=== PATIENT | female | born 1985 | race Caucasian/White ===

== ENCOUNTER 2023-06-23 14:27 | Observation (INO) | payer MEDICAID, SELFPAY ==
[2023-06-23 14:29] VITALS: BP 136/100; PULSE 84; RESP 18; TEMP 36.6; O2SAT 99; BMI 26.6
--- NOTE | 2023-06-23 14:42 | EX.ED.SAOD ---
HPI <JOSÉ Lala - Last Filed: 06/23/23 16:29> History of Present Illness Chief Complaint: Substance Abuse Narrative Narrative: 37-year-old female is here to detox from heroin. She states she started using Percocet 4 months ago and was taking up to 60 mg a day. 1 month ago she stopped Percocet and started snorting heroin about 5 lines daily. When she tried to quit at home she becomes extremely anxious and restless and relapses. This morning she walked into [facility] in [place] and was treated with clonidine and hydroxyzine and advised to come here for further evaluation. She states before that she never had drug issues and has never been admitted for detox. She vapes nicotine but denies alcohol or marijuana use. PFSH <JOSÉ Lala - Last Filed: 06/23/23 16:29> [facility] Home Medications NK 06/23/23 [History Last Taken Unknown] Allergy/AdvReac Type Severity Reaction Status Date / Time aspirin Allergy Nausea Verified 06/23/23 14:32 Surgical History (Updated 06/23/23 @ 15:28 by Latisha Taylor) H/O: hysterectomy Social History Smoking Status: Current every day smoker tobacco type: cigarettes ROS <JOSÉ Lala - Last Filed: 06/23/23 16:29> ROS ED ROS Narrative Constitutional: Negative for fever, chills, malaise. CVS: Negative for chest pain, syncope. Respiratory: Negative for shortness of breath. GI: Negative for abdominal pain, nausea, vomiting. EXAM <JOSÉ Lala - Last Filed: 06/23/23 16:29> Physical Exam Narrative Exam Narrative: CONST: Patient sitting in no acute distress. EYES: Normal inspection. NECK: Normal inspection. RESP: No respiratory distress, CTAB. CVS: Regular rate and rhythm, no murmur, no gallop. SKIN: Color normal, no rash, warm, dry, intact. EXTREMITIES: Normal appearance, no pedal edema. NEURO: Oriented x4. PSYCH: Anxious. Const Vital Signs: 06/23/23 14:29 Temperature 97.9 F Temperature Source Temporal Pulse Rate 84 Respiratory Rate 18 Blood Pressure 136/100 H Blood Pressure Mean 112 Pulse Ox 99 Oxygen Delivery Method Room Air <Dr. Samm Reinoso MD - Last Filed: 06/23/23 16:50> Physical Exam Const Vital Signs: 06/23/23 14:29 Temperature 97.9 F Temperature Source Temporal Pulse Rate 84 Respiratory Rate 18 Blood Pressure 136/100 H Blood Pressure Mean 112 Pulse Ox 99 Oxygen Delivery Method Room Air MDM <JOSÉ Lala - Last Filed: 06/23/23 16:29> [facility] Narrative Medical decision making narrative: Patient presents to detox from heroin. Last dose 8:30 AM. She is very anxious and restless. She appears well and nontoxic with stable vital signs. Labs show nonspecific leukocytosis at 12.9. BMP unremarkable. Urine tox is negative. Not sure what substance she is actually snorting that it doesn't show up on a screen. Case was discussed with the hospitalist for admission. Lab Data Attestation: I reviewed the patient's lab results. Labs: Laboratory Results - last 24 hr 06/23/23 06/23/23 15:21 15:35 WBC 12.9 H RBC 4.70 Hgb 13.6 Hct 41.2 MCV 87.7 MCH 28.9 MCHC 33.0 RDW Std Deviation 38.4 RDW Coeff of Bonifacio 11.9 Plt Count 320 MPV 9.6 Immature Gran % (Auto) 0.500 Neut % (Auto) 86.2 H Lymph % (Auto) 10.7 L Caswell % (Auto) 2.3 Eos % (Auto) 0.0 Baso % (Auto) 0.3 Absolute Neuts (auto) 11.1 H Absolute Lymphs (auto) 1.37 Nucleated RBC % 0 Sodium 138 Potassium 3.7 Chloride 105 Carbon Dioxide 26.0 Anion Gap 7 BUN 9 Creatinine 0.78 Estim Creat Clear Calc 93.27 Est GFR (MDRD) Af Amer 108 Est GFR (MDRD) Non-Af 89 BUN/Creatinine Ratio 11.6 Glucose 118 H Calcium 9.4 Total Bilirubin 0.50 AST 11 L ALT 15 Alkaline Phosphatase 64 Total Protein 7.6 Albumin 3.7 Globulin 3.9 Albumin/Globulin Ratio 0.9 Serum , Qual NEGATIVE Urine Opiates Screen NEGATIVE Urine Methadone Screen NEGATIVE Ur Barbiturates Screen NEGATIVE Ur Phencyclidine Scrn NEGATIVE Ur Amphetamines Screen NEGATIVE MDMA (Ecstasy) Screen NEGATIVE U Benzodiazepines Scrn NEGATIVE Urine Cocaine Screen NEGATIVE U Cannabinoids Screen NEGATIVE Ur Drug Screen Comment Ethyl Alcohol < 3.0 <Dr. Samm Reinoso MD - Last Filed: 06/23/23 16:50> [facility] Narrative Medical decision making narrative: Patient presents to detox from heroin. Last dose 8:30 AM. She is very anxious and restless. She appears well and nontoxic with stable vital signs. Labs show nonspecific leukocytosis at 12.9. BMP unremarkable. Urine tox is negative. Not sure what substance she is actually snorting that it doesn't show up on a screen. Case was discussed with the hospitalist for admission. I have personally performed a face to face assessment of the patient and have reviewed the MARTI Note. I performed a substantive portion of the visit including all aspects of the following. My kimball findings include: History is remarkable for opiate use in January. She states she started using opiates for kicks . Patient snorted what she believes to be heroin this morning. The powder was hwang in color. She states in the past the powder was white. She denies injecting. She denies fever, chills night sweats. Denies headache, visual, ocular auditory symptoms. Patient denies chest pain, shortness of breath or dyspnea on exertion. She denies abdominal pain, nausea, vomit or diarrhea. She denies urologic symptoms. Patient does feel anxious. Exam is is remarkable for her being anxious and restless. Vital signs remarkable slightly elevated blood pressure. HEENT exam is normal. Lungs are clear to auscultation. Breath sounds are symmetric. Heart is regular. Rate is normal. There is no murmur, gallop or rub. Abdomen soft nontender. There is no hepatosplenomegaly. There is no dermatologic lesions noted. Medical Decision Making patient with opiate use and addiction. Will obtain appropriate screening labs and contact hospitalist for admission. Spoke with Dr. Chico Montenegro who accepted patient for detox from opiates. Other additions or changes: None Lab Data Lab results narrative: White count is slightly elevated 12.9. Patient's had elevated white counts in the past. Electrolyte panel is normal. Liver panel is normal. Serum test is negative. Serum tox screen is negative. This may be due to the fact that patient is snorting fentanyl which would not show up on talk screen. Alcohol is nondetected. Labs: Laboratory Results - last 24 hr 06/23/23 06/23/23 15:21 15:35 WBC 12.9 H RBC 4.70 Hgb 13.6 Hct 41.2 MCV 87.7 MCH 28.9 MCHC 33.0 RDW Std Deviation 38.4 RDW Coeff of Bonifacio 11.9 Plt Count 320 MPV 9.6 Immature Gran % (Auto) 0.500 Neut % (Auto) 86.2 H Lymph % (Auto) 10.7 L Caswell % (Auto) 2.3 Eos % (Auto) 0.0 Baso % (Auto) 0.3 Absolute Neuts (auto) 11.1 H Absolute Lymphs (auto) 1.37 Nucleated RBC % 0 Sodium 138 Potassium 3.7 Chloride 105 Carbon Dioxide 26.0 Anion Gap 7 BUN 9 Creatinine 0.78 Estim Creat Clear Calc 93.27 Est GFR (MDRD) Af Amer 108 Est GFR (MDRD) Non-Af 89 BUN/Creatinine Ratio 11.6 Glucose 118 H Calcium 9.4 Total Bilirubin 0.50 AST 11 L ALT 15 Alkaline Phosphatase 64 Total Protein 7.6 Albumin 3.7 Globulin 3.9 Albumin/Globulin Ratio 0.9 Serum , Qual NEGATIVE Urine Opiates Screen NEGATIVE Urine Methadone Screen NEGATIVE Ur Barbiturates Screen NEGATIVE Ur Phencyclidine Scrn NEGATIVE Ur Amphetamines Screen NEGATIVE MDMA (Ecstasy) Screen NEGATIVE U Benzodiazepines Scrn NEGATIVE Urine Cocaine Screen NEGATIVE U Cannabinoids Screen NEGATIVE Ur Drug Screen Comment Ethyl Alcohol < 3.0 Discharge Plan Triage Chief Complaint: Substance Abuse ED Midlevel Provider: Juanita Mejia ED Provider: Samm Reinoso Dx/Rx/DC Orders Clinical Impression: Anxiety, Opioid abuse Prescriptions: No Action NK [facility] Referrals: Care Physician,No Primary [Non-Staff] - Disposition Disposition: Acute Care Hospital [facility]
[2023-06-23] MEDS: LORazepam 0.5 MG Tablet PO ×2 (15:10→17:13)
[2023-06-23 15:52] LABS: Amphetamine Urine VISTA NEGATIVE (<1000 ng/mL); Barbiturate Urine VISTA NEGATIVE (< 200 ng/mL); Benzodiazepine Urine VISTA NEGATIVE (< 200 ng/mL); Cocaine Urine VISTA NEGATIVE (< 300 ng/mL); Ecstacy Urine VISTA NEGATIVE (< 500 ng/mL); Methadone Urine VISTA NEGATIVE (< 300 ng/mL); PCP Urine VISTA NEGATIVE (< 25 ng/mL); THC Urine VISTA NEGATIVE (< 50 ng/mL); Vista UDS pH Range 6
[2023-06-23 15:52] LABS: Absolute Lymphocyte Count 1.37 X10^3/uL (0.83-4.51); Absolute Neutrophil Count 11.1 X10^3/uL (2.0-7.7); Basophil# 0.04 X10^3/uL; Basophil% 0.3 % (0-1); Hematocrit 41.2 % (37-47); Hemoglobin 13.6 g/dL (12.0-15.0); Lymphocyte # 1.37 X10^3/ul (0.83-4.51); Lymphocyte % 10.7 % (19-41); Mean Corpuscular Hgb 28.9 pg (27.0-32.0); Mean Corpuscular Volume 87.7 fL (81-99); Mean Platelet Vol. 9.6 fl (6.2-12.0); Monocyte% 2.3 % (0-10); NRBC Flagged by Analyzer 0 % (0-5); Neutrophil # 11.07 X10^3/uL (2.7-7.7); Neutrophil % 86.2 % (47-70); Platelet Count 320 K/mm3 (150-450); RBC Distribution Width CV 11.9 % (11.6-14.6); RBC Distribution Width SD 38.4 fl (35.1-43.9); White Blood Count 12.9 K/mm3 (4.4-11.0)
--- OUTSIDE RECORDS SUMMARY | 2023-06-23 15:52 | XMS RPT_ITS | CCD ---
Author Name Unknown Address [address] [place] [address] Organization [facility] Care Team Providers Care Janitorial Maintenance Worker Name Role Phone Douglas Sheffield Unavailable Unavailable Douglas Sheffield Unavailable [facility]available [facility], Phys[facility] Primary Care Unavailable Gilmer Salazar Admitting Unavailable Gilmer Salazar Attending Unavailable [facility], Physician Primary Care Unavailable Ted Thibodeaux Admitting Unavailable Ted Thibodeaux Attending Unavailable Required, No Pcp Unavailable Unavailable Ale Fink Unavailable Unavailable MATTEO, Ms. ALE GILLILAND Attending Un available ILAN ALLEN Attending Unavailable EVELYN GANDHI Primary Care Unavailable MARQUES REED Attending Unava ilable EVELYN GANDHI Primary Care Unavailable ELAINE GANDHIA Dilip Primary Care Unavailable RIGO MORA Attending Unavailab le ELAINE GANDHIA Dilip Primary Care Unavailable MARQUES REED Attending Unava ilable ELAINE GANDHIA Dilip Primary Care Unavailable RIGO MORA Attending Unavailab le Allergies Allergy Classification Reported Allergen(s) Allergy Type Date of Onset Reaction(s) Facility (1 source) Asprin 325mg only; Translations: [Asprin 325mg only] Propensity to adverse reactions to drug (disorder) [facility] Repository (1 source) Low Dose ASA; Translations: [Low Dose ASA] Propensity to adverse reactions to drug (disorder) [facility] Repository (3 sources) Aspirin; Translations: [ASPIRIN] Drug Allergy 2 Other [facility] Medications Current Medications Medication Drug Class(es) Dates Sig (Normalized) Sig (Original) cephalexin 500 mg oral tablet (1 source) Cephalosporin Antibacterial Start: 05-21-2022 End: 05-27-2022 take 1 tablet by mouth four times daily cephalexin 500 mg oral tablet ; 1 tab(s) orally 4 times a day Quantity: 28 Refills: 0 Ordered: 21-May-2022 Ale Fink Start: 21-May-2022 End: 27-May-2022 Generic Substitution Allowed Comments: Finish all this medication unless otherwise directed by prescriber. Problems Active Problems Problem Classification Problem Date Documented Da te Episodic/Chronic Anxiety disorders (2 sources) Generalized anxiety disorder; Translations: [Generalized anxiety disorder] Onset: 03-23-2023 Chronic Cardiac dysrhythmias (2 sources) Palpitations; Translations: [Palpitations] Onset: 05-22-2022 Episodic Genitourinary symptoms and ill-defined conditions (1 source) Dysuria; Translations: [Dysuria] Onset: 05-21-2022 Episodic Headache; including migraine (2 sources) Headache; including migraine; Translations: [Headache, unspecified] Onset: 05-21-2022 Nausea and vomiting (2 sources) Nausea; Translations: [Nausea] Onset: 02-20-2023 Episodic Other connective tissue disease (2 sources) Other enthesopathies, not elsewhere classified; Translations: [Other enthesopathies, not elsewhere classified] Onset: 01-12-2023 Episodic Other lower respiratory disease (2 sources) Shortness of breath; Translations: [Shortness of breath] Onset: 05-22-2022 Episodic Other nervous system disorders (1 source) Tremor; Translations: [Abnormal involuntary movements] 05-21-2022 Episodic Other nervous system disorders (4 sources) Tremor, unspecified; Translations: [Tremor, unspecified] Onset: 05-21-2022 Episodic Other non-traumatic joint disorders (2 sources) Pain in right shoulder; Translations: [Pain in right shoulder] Onset: 01-12-2023 Episodic Poisoning by nonmedicinal substances (2 sources) Toxic effect of other tobacco and nicotine, accidental (unintentional), initial encounter; Translations: [Toxic effect of other tobacco and nicotine, accidental (unintentional), initial encounter] Onset: 03-23-2023 Episodic Substance-related disorders (1 source) Nicotine dependence, other tobacco product, uncomplicated; Translations: [Nicotine dependence, other tobacco product, uncomplicated] Onset: 05-21-2022 Chronic Unclassified (2 sources) URINARY ISSUES 05-21-2022 Past or Other Problems Problem Classification Problem Date Documented Da te Episodic/Chronic Other connective tissue disease (2 sources) Pain in right leg; Translations: [Pain in right leg] Onset: 05-09-2022 Episodic Sprains and strains (2 sources) Strain of unspecified muscle and tendon at ankle and foot level, right foot, initial encounter; Translations: [Strain of unspecified muscle and tendon at ankle and foot level, right foot, initial encounter] Onset: 05-09-2022 Episodic Results Test Name Value Interpretation Reference Range Facil ity Vital Signs Date Time Vital Sign Value Performing Clinician Faci lity 05-21-2022 18:20-0500 Diastolic blood pressure 80 mm[Hg] No Pcp Required [facility] 05-21-2022 18:20-0500 Heart rate 58 /min No Pcp Required [facility] 05-21-2022 18:20-0500 Respiratory rate 16 /min No Pcp Required [facility] 05-21-2022 18:20-0500 SaO2% (BldA) [Mass fraction] 98 % No Pcp Required [facility] 05-21-2022 18:20-0500 Systolic blood pressure 123 mm[Hg] No Pcp Required [facility] 05-21-2022 15:12-0500 Body height 160 cm No Pcp Required [facility] 05-21-2022 15:12-0500 Body temperature 97.7 [degF] No Pcp Required [facility] 05-21-2022 15:12-0500 Body weight 82 kg No Pcp Required [facility] Encounters Encounter Date Encounter Type Care Provider Facility Start: 03-23-2023 End: 03-23-2023 Emergency department patient visit EVELYN GANDHI [facility] Start: 02-20-2023 End: 02-20-2023 Emergency department patient visit EVELYN GANDHI [facility] Start: 01-12-2023 End: 01-12-2023 Emergency department patient visit EVELYN GANDHI [facility] Start: 05-22-2022 End: 05-22-2022 Emergency department patient visit [facility] Start: 05-21-2022 End: 05-21-2022 Emergency department patient visit Ale Fink [facility] Emergency 07 Start: 05-09-2022 End: 05-09-2022 Emergency department patient visit MARQUES VENUS [facility] Start: 08-09-2018 End: 08-09-2018 Emergency department patient visit Physician [place] Facility:[facility] Start: 08-09-2018 Patient encounter procedure Facility:[id number] Start: 09-13-2017 End: 09-13-2017 Emergency department patient visit Physician [place] Facility:[facility] Start: 12-02-2016 End: 12-02-2016 Emergency department patient visit Douglas Neftali Sheffield Facility:[facility] Payers Date Payer Category Payer Medicaid [id number] 2017 Unknown [id number] 2017 Unknown 1987 Unknown [id number] [id number] 1987 Unknown [id number] 2.16.84 [id number] 1987 Unknown [id number] 2.16. [id number] 1987 Unknown [id number] 2.16.8 [id number] 1987 Unknown [id number] 2.16. [id number] 1987 Unknown [id number] 2.16. [id number] 1987 Unknown [id number] 2.16. [id number] 1987 Unknown [id number] 2.16. [id number] 1987 Unknown [id number] 2.16. [id number] Unknown [id number] Social History Date Type Detail Facility [facility] Tobacco smoking consumption unknown [facility] Clinical Note 05-24-2022 Note Date & Type Note Facility 05-24-2022 Note Clinical Note - Phar hue v2: Education: Additional NotesED Post Discharge Result Follow Up: Attempt #, Complete/Pending# Completed #Type#: urine Bug# E. Coli Spoke With: Patient Patient contacted in regards a positive urine culture. Patient was instructed to continue taking full course of antibiotics and to f/u with PCP if symptoms worsen. Patient educated on the worsening signs and symptoms of UTI including an increase in flank pain or suprapubic pain, chills, fever, urgency, burning, frequency, foul smelling urine, blood in urine, and any abnormal discharge. Made aware to seek medical attention if experiencing any new or worsening symptoms and to follow up with PCP. Pt verbalizes understanding and has no other questions or concerns. Patient verbalized understanding and had no further questions or concerns. If there are any other questions for the ED Post-Discharge Culture Follow Up Team, please contact [phone]. . Leesa Kenny PharmD PGY1 Resident [facility] Electronic Signatures: Leesa Kenny (PHARM STUD) (Signed 24-May-2022 16:11) Authored: Education Deonna Barber (PharmD) (Signed 27-May-2022 02:31) Co-Signer: Education Last Updated: 27-May-2022 02:31 by Deonna Barber (PharmD) [facility] Summary Purpose Family History No Family History Records FoundNo Family History Records FoundNo Family History Records FoundNo Family History Records FoundNo Family History Records FoundNo Family History Records Found Advance Directives No Advanced Directives Records FoundNo Advanced Directives Records FoundNo Advanced Directives Records FoundNo Advanced Directives Records FoundNo Advanced Directives Records FoundNo Advanced Directives Records Found Reason for Referral * UTI, shaking episodeUTI, shaking episode Additional Source Comments INFORMATION SOURCE (unrecogn ized section and content) DATE CREATED AUTHOR AUTHOR'S ORGANIZ ATION 08/10/2018 [facility] DATE CREATED AUTHOR AUTHOR'S ORGANIZ ATION 09/07/2018 [facility] DATE CREATED AUTHOR AUTHOR'S ORGANIZ ATION 05/27/2022 [facility] DATE CREATED AUTHOR AUTHOR'S ORGANIZ ATION 05/27/2022 [facility] DATE CREATED AUTHOR AUTHOR'S ORGANIZ ATION 03/24/2023 [facility] <item> Privacy Markings (unrecogniz ed section and content) Section Author: Laverne Fernandez PROHIBITION ON REDISCLOSURE OF CONFIDENTIAL INFORMATION This notice accompanies a disclosure of information concerning a client made to you with the consent of such client. FOR RECORDS PERTAINING TO PATIENTS WHO ARE OR HAVE BEEN ENROLLED IN A CHEMICAL DEPENDENCY/SUBSTANCEABUSE PROGRAM, SOME INFORMATION MAY BE OMITTED. This clinical summary was aggregated from multiple sources. Caution should be exercised in using it in the provision of clinical care. This summary normalizes information from multiple sources, and as a consequence, information in this document may materially change the coding, format and clinical context of patient data. In addition, data may be omitted in some cases. CLINICAL DECISIONS SHOULD BE BASED ON THE PRIMARY CLINICAL RECORDS. [employer] [facility]. provides no warranty or guarantee of the accuracy or completeness of information in this document.
[2023-06-23 16:03] LABS: ALB/GLOB Ratio 0.9 RATIO (0.9-2.4); AST(SGOT) 11 U/L (15-37); Alanine Aminotransfer ALT/SGPT 15 U/L (13-56); Albumin, Serum 3.7 g/dL (3.2-5.0); Alkaline Phosphatase 64 U/L (45-117); Anion Gap 7 (5-15); BUN 9 mg/dL (7-18); BUN/Creat Ratio 11.6 RATIO (10-20); Calcium,Total 9.4 mg/dL (8.5-10.1); Chloride 105 mmol/L (98-107); Creatinine, Serum 0.78 mg/dL (0.55-1.02); EST Glomerular Filtration Rate 89 mL/min (>60); Est Glom Filt Rate - Afr Amer 108 mL/min (>60); Estimated Creatinine Clearance 93.27 ml/min; Globulin 3.9 g/dL (2.2-4.2); Glucose 118 mg/dL (74-106); Potassium 3.7 mmol/L (3.5-5.1); Protein, Total 7.6 g/dL (6.4-8.2); Sodium Level 138 mmol/L (136-145)
--- NOTE | 2023-06-23 16:22 | HP.PCM.HOS_ITS ---
HPI - General General Date of Admission: 06/23/23 Date of Service: 06/23/23 Chief Complaint: Opiate abuse HPI Narrative RUSLAN MTZ, is a 37 F who presented to [facility] ED on 06/23/2023 for opiate detoxification. Patient seen at bedside in the ED. Patient was sitting up in bed, conversing normally. Patient appeared very anxious and was tearful at times during our conversation. She reported feeling very anxious despite receiving a dose of p.o. Ativan while in the ED and was asking for more medications to help with anxiety during my encounter. Patient has never been in the hospital for opiate detoxification. Patient began abusing opiates about 4 months ago. She started snorting Percocet at that time. No pr evious history of substance use disorder. States that she started doing this on the way home with her friends because it was fun. She got the Percocet from friends. She states that they ran out of Percocet about 1 to 2 months ago, and she began snorting heroin at that time. She has been using heroin daily since then, usually 4-5 times per day. Patient states she came to the hospital today because she wants to be done with using opiates and know that she has withdrawal symptoms when she does not use. Patient has children at home, states that she has gotten childcare for them so that she can be in the hospital for as long as needed. She currently reports feeling very anxious with mild nausea and frequent yawning. She otherwise denies any acute pain or discomfort. No other acute concerns this time. FORMERLY [facility], [facility] Home Medications NK 06/23/23 [History Last Taken Unknown] Allergy/AdvReac Type Severity Reaction Status Date / Time aspirin Allergy Nausea Verified 06/23/23 14:32 Surgical History (Updated 06/23/23 @ 15:28 by Latisha Taylor) H/O: hysterectomy Social History Smoking Status: Current every day smoker tobacco type: cigarettes ROS Constitutional Constitutional: Denies chills, fatigue, fever(s) or weakness Eyes Eyes: Denies change in vision Cardiovascular Cardiovascular: Denies chest pain Respiratory/Chest Respiratory/Chest: Denies cough Gastrointestinal Gastrointestinal: Reports nausea; Denies abdominal pain, constipation, diarrhea or vomiting Genitourinary Genitourinary: Denies dysuria Musculoskeletal Musculoskeletal: Reports myalgias; Denies arthralgias or back pain Neurologic Neurologic: Denies focal weakness, headache(s) or numbness Psychiatric Psychiatric: Reports anxiety Vital Signs Vital Signs Vital Signs: 06/23/23 14:29 Temperature 97.9 F Temperature Source Temporal Pulse Rate 84 Respiratory Rate 18 Blood Pressure 136/100 H Blood Pressure Mean 112 Pulse Ox 99 Oxygen Delivery Method Room Air Weight Weight: 68.13 kg Body Mass Index (BMI) 26.6 Physical Exam Const alert, oriented x3, no apparent distress and average body habitus Constitutional Narrative: Young female, sitting up in bed, anxious appearing but otherwise conversing normally and in no acute distress. General Appearance: cooperative and comfortable HEENT normocephalic, head/scalp atraumatic, hearing grossly normal bilaterally, nasal mucous membranes and turbinates normal and moist oral mucous membranes Eyes PERRL, EOMs intact bilaterally and conjunctivae normal Neck full ROM, no lymphadenopathy and supple Lymph Lymphatic: no lymphadenopathy noted Chest inspection of chest normal Resp normal respiratory effort, normal air movement, no use of accessory muscles and clear to auscultation bilaterally Cardio regular rate, regular rhythm, no murmurs and peripheral pulses 2+ throughout GI normal to inspection, nondistended, normoactive bowel sounds, soft to palpation, non-tender and non-distended Back/Spine normal ROM Extremity normal to inspection, full ROM and no pedal edema Skin no rashes or lesions noted Neuro moves all extremities and no focal motor deficits Speech: speech normal Psych mental status grossly normal Mood & Affect: anxious Results Lab / Micro Data 06/23/23 15:35 06/23/23 15:35 Labs: Laboratory Results - last 24 hr 06/23/23 15:21: Urine Opiates Screen NEGATIVE, Urine Methadone Screen NEGATIVE, Ur Barbiturates Screen NEGATIVE, Ur Phencyclidine Scrn NEGATIVE, Ur Amphetamines Screen NEGATIVE, MDMA (Ecstasy) Screen NEGATIVE, U Benzodiazepines Scrn NEGATIVE, Urine Cocaine Screen NEGATIVE, U Cannabinoids Screen NEGATIVE, Ur Drug Screen Comment 06/23/23 15:35: WBC 12.9 H, RBC 4.70, Hgb 13.6, Hct 41.2, MCV 87.7, MCH 28.9, MCHC 33.0, RDW Std Deviation 38.4, RDW Coeff of Bonifacio 11.9, Plt Count 320, MPV 9.6, Immature Gran % (Auto) 0.500, Neut % (Auto) 86.2 H, Lymph % (Auto) 10.7 L, [place] % (Auto) 2.3, Eos % (Auto) 0.0, Baso % (Auto) 0.3, Absolute Neuts (auto) 11.1 H, Absolute Lymphs (auto) 1.37, Nucleated RBC % 0, Sodium 138, Potassium 3.7, Chloride 105, Carbon Dioxide 26.0, Anion Gap 7, BUN 9, Creatinine 0.78, Estim Creat Clear Calc 93.27, Est GFR (MDRD) Af Amer 108, Est GFR (MDRD) Non-Af 89, BUN/Creatinine Ratio 11.6, Glucose 118 H, Calcium 9.4, Total Bilirubin 0.50, AST 11 L, ALT 15, Alkaline Phosphatase 64, Total Protein 7.6, Albumin 3.7, Globulin 3.9, Albumin/Globulin Ratio 0.9 Assessment & Plan Assessment/Plan (1) Opioid abuse: PLAN: Plan Patient is a 37-year-old female who presented to [facility] ED on 06/23/2023 for opiate detoxification. 1. Opiate abuse Began snorting Percocet about 4 months ago, switched to snorting heroin 1 to 2 months ago. No previous substance abuse prior to 4 months ago. Has never gone through opiate detoxification before. Urine drug screen negative, but notably heroin will not show up on urine drug screen. ? Admit under inpatient status to [facility]. Case management consulted. Opiate withdrawal order set used to place orders for Subutex taper and as needed medications for opiate withdrawal. 2. Mild leukocytosis ? WBC count 12.9 on admit. Suspect due to mild stress state versus hemoconcentration. No infectious symptoms noted. Follow-up a.m. CBC. No need for antibiotics at this time. DVT prophylaxis: Low risk, ambulate CODE STATUS: Full code, verified Expected disposition: Home, 2 to 3 days Total clinical time spent by myself addressing the patient's medical issues, reviewing all the data, and collaborating with patient's care team: 40 minutes. Charges/Coding Visit Charges Inpatient E&M: 16537 Init Hosp L1
[2023-06-23 16:38] LABS: Internal QC Validated? YES +Cl - CLEAR BKGD; Pregnancy, Serum, hCG Quali. NEGATIVE Negative
[2023-06-23 16:39] LABS: Alcohol, Blood (Medical)-Serum < 3.0 mg/dL
--- OUTSIDE RECORDS SUMMARY | 2023-06-23 16:51 | XMS RPT_ITS | CCD ---
Author Name Unknown Address [id number] [place] [address] Organization [facility] Care Team Providers Care Food Product Inspector Name Role Phone Douglas Sheffield Unavailable Unavailable [...] Propensity to adverse reactions to drug (disorder) [facility] Repository (1 source) Low Dose ASA; Translations: [Low Dose ASA] Propensity to adverse reactions to drug (disorder) [facility] Repository (3 sources) Aspirin; Translations: [ASPIRIN] Drug Allergy 2 Other [facility] Medications Current Medications Medication Drug Class(es) [...] blood pressure 80 mm[Hg] No Pcp Required [facility] 05-21-2022 18:20-0500 Heart rate 58 /min No Pcp Required [facility] 05-21-2022 18:20-0500 Respiratory rate 16 /min No Pcp Required [facility] 05-21-2022 18:20-0500 SaO2% (BldA) [Mass fraction] 98 % No Pcp Required [facility] 05-21-2022 18:20-0500 Systolic blood pressure 123 mm[Hg] No Pcp Required [facility] 05-21-2022 15:12-0500 Body height 160 cm No Pcp Required [facility] 05-21-2022 15:12-0500 Body temperature 97.7 [degF] No Pcp Required [facility] 05-21-2022 15:12-0500 Body weight 82 kg No Pcp Required [facility] Encounters Encounter Date Encounter Type Care Provider Facility Start: 03-23-2023 End: 03-23-2023 Emergency department patient visit EVELYN GANDHI [facility] Start: 02-20-2023 End: 02-20-2023 Emergency department patient visit EVELYN GANDHI [facility] Start: 01-12-2023 End: 01-12-2023 Emergency department patient visit EVELYN GANDHI [facility] Start: 05-22-2022 End: 05-22-2022 Emergency department patient visit [facility] Start: 05-21-2022 End: 05-21-2022 Emergency department patient visit lAe Fink [facility] Start: 05-09-2022 End: 05-09-2022 Emergency department patient visit MARQUES VENUS [facility] Start: 08-09-2018 End: 08-09-2018 Emergency department patient visit Physician [place] Facility:[facility] Start: 08-09-2018 Patient encounter procedure Facility:[id number] Start: 09-13-2017 End: 09-13-2017 Emergency department patient visit Physician [place] Facility:[facility] Start: 12-02-2016 End: 12-02-2016 Emergency department patient visit Douglas Neftali Sheffield Facility:[facility] Payers Date Payer Category Payer Medicaid [id number] 2017 Unknown [id number] 2017 Unknown 1987 Unknown [id number] [id number] 1987 Unknown [id number] 2.16.84 [id number] 1987 Unknown [id number] 2.16. [id number] 1987 Unknown [id number] 2.16.8 [id number] 1987 Unknown [id number] 2.16. [id number] 1987 Unknown [id number] 2.16. [id number] 1987 Unknown [id number] 2.16. [id number] 1987 Unknown [id number] 2.16. [id number] 1987 Unknown [id number] 2.16. [id number] Unknown [id number] Social History Date Type Detail Facility [facility] Tobacco smoking consumption unknown [facility] Clinical Note 05-24-2022 Note Date & [...] Post-Discharge Culture Follow Up Team, please contact [phone]. . Leesa Kenny PharmD PGY1 Resident [facility] Electronic Signatures: Leesa Kenny (PHARM STUD) (Signed 24-May-2022 16:11) Authored: Education Deonna Barber (PharmD) (Signed 27-May-2022 02:31) Co-Signer: Education Last Updated: 27-May-2022 02:31 by Deonna Barber (PharmD) [facility] Summary Purpose Family History No Family History [...] DATE CREATED AUTHOR AUTHOR'S ORGANIZ ATION 08/10/2018 [facility] DATE CREATED AUTHOR AUTHOR'S ORGANIZ ATION 09/07/2018 [facility] DATE CREATED AUTHOR AUTHOR'S ORGANIZ ATION 05/27/2022 [facility] DATE CREATED AUTHOR AUTHOR'S ORGANIZ ATION 05/27/2022 [facility] DATE CREATED AUTHOR AUTHOR'S ORGANIZ ATION 03/24/2023 [facility] <item> Privacy Markings (unrecogniz ed [...] BE BASED ON THE PRIMARY CLINICAL RECORDS. [employer] [facility]. provides no warranty or guarantee of the accuracy or completeness of information in this document.
[2023-06-23 17:34] VITALS: BP 129/87; PULSE 87; RESP 16; O2SAT 99
[2023-06-23 17:49] VITALS: BMI 26.6
[2023-06-23 18:08] VITALS: BP 134/68; PULSE 82; RESP 16; TEMP 36.9; O2SAT 100
[2023-06-23] MEDS: hydrOXYzine PAM 25 MG Capsule 50 MG PO (18:30)
[2023-06-23] MEDS: cloNIDine HCl 0.1 MG Tablet 0.100000000000000006 MG PO (18:30)
[2023-06-23] MEDS: Acetaminophen 325 MG Tablet 650 MG PO (18:30)
[2023-06-23] MEDS: Methocarbamol 750 MG Tablet PO (18:30)
[2023-06-23] MEDS: Buprenorphine HCl 2 MG TAB.SUBL SL (18:53)
[2023-06-23] MEDS: Gabapentin 300 MG Capsule PO (20:45)
[2023-06-23] MEDS: traZODone 100 MG Tablet PO (20:45)
[2023-06-23] MEDS: Dicyclomine 10 MG Capsule 20 MG PO (20:45)
[2023-06-23] MEDS: Ondansetron 8 MG Tablet PO (20:49)
[2023-06-23 20:51] VITALS: BP 144/85; PULSE 79; RESP 18; TEMP 36.5; O2SAT 100
[2023-06-24 03:45] VITALS: BP 109/61; PULSE 59; RESP 18; TEMP 36.8; O2SAT 98
[2023-06-24 07:21] LABS: Hematocrit 39.8 % (37-47); Hemoglobin 13.1 g/dL (12.0-15.0); Mean Corp Hgb Conc 32.9 g/dL (32-36); Mean Corpuscular Hgb 28.8 pg (27.0-32.0); Mean Corpuscular Volume 87.5 fL (81-99); Mean Platelet Vol. 9.5 fl (6.2-12.0); Platelet Count 305 K/mm3 (150-450); RBC Distribution Width CV 11.9 % (11.6-14.6); RBC Distribution Width SD 38.4 fl (35.1-43.9); Red Blood Count 4.55 M/mm3 (4.2-5.4)
[2023-06-24 07:59] LABS: Anion Gap 3 (5-15); BUN 11 mg/dL (7-18); BUN/Creat Ratio 12.3 RATIO (10-20); Calcium,Total 9.4 mg/dL (8.5-10.1); Chloride 108 mmol/L (98-107); EST Glomerular Filtration Rate 76 mL/min (>60); Est Glom Filt Rate - Afr Amer 92 mL/min (>60); Estimated Creatinine Clearance 80.84 ml/min; Glucose 117 mg/dL (74-106); Potassium 4.1 mmol/L (3.5-5.1); Sodium Level 140 mmol/L (136-145)
[2023-06-24 09:00] VITALS: BP 129/77; PULSE 75; RESP 18; TEMP 36.6; O2SAT 100
[2023-06-24] MEDS: cloNIDine HCl 0.1 MG Tablet 0.100000000000000006 MG PO (09:18)
[2023-06-24] MEDS: Dicyclomine 10 MG Capsule 20 MG PO (09:18)
[2023-06-24] MEDS: Gabapentin 300 MG Capsule PO ×2 (09:18→17:05)
[2023-06-24] MEDS: Methocarbamol 750 MG Tablet PO ×2 (09:18→17:05)
[2023-06-24] MEDS: Buprenorphine HCl 2 MG TAB.SUBL SL ×2 (10:50→18:31)
--- NOTE | 2023-06-24 11:23 | ADDICTION ---
This screen writer met with PT to conduct ASAM, MSE, AUDIT, DUDIT assessments and to plan for d/c. PT A+Ox4 and participated actively. All assessments completed and placed in PT's chart. PT plans to f/u with follow-up treatment services, however she wanted to discuss it with her family upon d/c. This worker offered resources based on her needs. PT did not indicate a need for transportation post d/c from [facility].
[2023-06-24] MEDS: hydrOXYzine PAM 25 MG Capsule 50 MG PO ×2 (13:24→21:42)
--- NOTE | 2023-06-24 14:11 | CHAPLAIN ---
Type of Pastoral Visit _x__ Initial Visit ___ Follow-up Visit ___ On-call Visit ___ General Patient Visit ___ Spiritual Assessment ___ Family Conference ___ Bereavement ___ Rapid Response ___ Code Blue ___ Other (describe below) Pastoral Care Referral From _x__ Patient ___ Family ___ Nurse ___ Physician ___ Certified Court/Medical Interpreter ___ Events Manager ___ Other (describe below) Sacrament/Intervention _x__ Active listening ___ Anointing ___ Advent ___ Bereavement ___ Communion _x__ Michelle exploration ___ _x__ Life review _x__ Prayer ___ Reconciliation ___ Sacrament of Sick _x__ Supportive presence ___ Wedding ___ Other (describe below) Pastoral Comments patient is very eager to talk, expresses gratitude several times for the visit and support, and requests a follow up visit after this first visit concluded; pt is able to share some life review and admits to her history of anxiety; pt acknowledges emotional struggles with past, guilt, and shame over decisions and activities engaged in over the past; pt is concerned about her two sons that are being cared for by a 'best friend'; pt has a SO that is trying to detox at home; pt understands that she cannot continue to allow him access to her if he does not stop using drugs as well; pt has many thoughts about taoist and spiritual things and is open to that discussion for support; pt has two relatives that she has to confide in about her addiction and need for support; pt has a plan for treatment in place for when she is discharged; pt is very talkative and expressive of her feelings, pt is tearful much during the encounter; pt welcomes prayer for spiritual support; follow up will be planned
[2023-06-24 14:36] VITALS: BP 128/75; PULSE 70; RESP 18; TEMP 36.7; O2SAT 98
--- NOTE | 2023-06-24 15:48 | PCM.PN.HOSP ---
Reason for Visit Reason for Visit: Diagnoses Opioid abuse, uncomplicated (06/23/23) Objective Data Objective Data Vital Signs: Vital Signs Temp Pulse Resp BP Pulse Ox O2 Del Method 98.0 F 70 18 128/75 H 98 Room Air 06/24/23 14:36 06/24/23 14:36 06/24/23 14:36 06/24/23 14:36 06/24/23 14:36 06/24/23 14:36 Oxygen Delivery Method Room Air Weight: 150 lb 3.215 oz Body Mass Index (BMI) 26.6 Medical Nutrition Assessment Dietitian: Malnutrition Criteria Met Start: 06/24/23 12:20 Freq: Status: Active Protocol: Document 06/24/23 12:20 AG (Rec: 06/24/23 12:20 [id number]) Nutrition Malnutrition Evidence of Malnutrition Exists Yes Malnutrition (severe): Chronic Evidenced By Suboptimal Energy Intake ( Severe),Weight Loss (Severe) Clinical Problem Chronic Disease or Condition Related Malnutrition Etiology chronic severe malnutrition in context of substance abuse related to inadequate energy intake Signs/Symptoms as evidenced by unintentional 28% wt loss x 5-6 months, estimated PO intake meeting < 75% of estimated energy needs >3 months Status Active Problem Recommendation Dietitian Recommendations/Changes continue regular diet as tolerated, will add 8oz carnation instant breakfast w/ meals d/t signs/symptoms of malnutrition Lab / Micro Data 06/24/23 06:59 06/24/23 06:59 Labs: Laboratory Results - last 24 hr 06/23/23 15:21: Urine Opiates Screen NEGATIVE, Urine Methadone Screen NEGATIVE, Ur Barbiturates Screen NEGATIVE, Ur Phencyclidine Scrn NEGATIVE, Ur Amphetamines Screen NEGATIVE, MDMA (Ecstasy) Screen NEGATIVE, U Benzodiazepines Scrn NEGATIVE, Urine Cocaine Screen NEGATIVE, U Cannabinoids Screen NEGATIVE 06/23/23 15:35: WBC 12.9 H, RBC 4.70, Hgb 13.6, Hct 41.2, MCV 87.7, MCH 28.9, MCHC 33.0, RDW Std Deviation 38.4, RDW Coeff of Bonifacio 11.9, Plt Count 320, MPV 9.6, Immature Gran % (Auto) 0.500, Neut % (Auto) 86.2 H, Lymph % (Auto) 10.7 L, [place] % (Auto) 2.3, Eos % (Auto) 0.0, Baso % (Auto) 0.3, Absolute Neuts (auto) 11.1 H, Absolute Lymphs (auto) 1.37, Nucleated RBC % 0, Sodium 138, Potassium 3.7, Chloride 105, Carbon Dioxide 26.0, Anion Gap 7, BUN 9, Creatinine 0.78, Estim Creat Clear Calc 93.27, Est GFR (MDRD) Af Amer 108, Est GFR (MDRD) Non-Af 89, BUN/Creatinine Ratio 11.6, Glucose 118 H, Calcium 9.4, Total Bilirubin 0.50, AST 11 L, ALT 15, Alkaline Phosphatase 64, Total Protein 7.6, Albumin 3.7, Globulin 3.9, Albumin/Globulin Ratio 0.9, Serum , Qual NEGATIVE, Ethyl Alcohol < 3.0 06/24/23 06:59: WBC 10.0, RBC 4.55, Hgb 13.1, Hct 39.8, MCV 87.5, MCH 28.8, MCHC 32.9, RDW Std Deviation 38.4, RDW Coeff of Bonifacio 11.9, Plt Count 305, MPV 9.5, Sodium 140, Potassium 4.1, Chloride 108 H, Carbon Dioxide 29.0, Anion Gap 3 L, BUN 11, Creatinine 0.90, Estim Creat Clear Calc 80.84, Est GFR (MDRD) Af Amer 92, Est GFR (MDRD) Non-Af 76, BUN/Creatinine Ratio 12.3, Glucose 117 H, Calcium 9.4 Physical Exam Narrative Patient admitted with opioid use disorder with mild acute opioid withdrawal symptoms. Patient states she snorts heroin, started with Percocet from the friends. Currently she gets heroin from the streets. Physical exam General: Alert, Oriented x3, Cooperative HEENT: Atraumatic, PERRLA, EOMI, Normocephalic Oral: No Gingival or Mucosal Lesions/ Ulcerations Neck: Supple, No JVD, Negative Carotid Bruits Lungs: Air entry diminished in bilateral lung bases. No crepitation/rhonchi Cardiovascular: Regular rate, Regular Rhythm, Normal S1, Normal S2, No murmurs Abdomen: Bowel Sounds Present, Soft, Non Tender, Non-Distended : No renal angle tenderness. No suprapubic tenderness. Extremities: No edema, Capillary Refill Less than 3 Seconds Skin: No rashes, No breakdown Musculoskeletal: No Tenderness to Palpation of Joints or Extremities Neurological: Cranial nerves II-XII grossly intact, DTR 2+/4. No acute focal neurological deficit. Psych/Mental Status: Normal Affect, Appropriate. Assessment & Plan Assessment/Plan (1) Opioid abuse: PLAN: Plan Patient is a 37-year-old female who presented to [facility] ED on 06/23/2023 for opiate detoxification. 1. Acute opioid withdrawal syndrome with history of chronic opioid use disorder and dependence: Patient is admitted on MedSur floor. The patient is started on buprenorphine along with other adjunctive medications as needed for medical stabilization as per order set of opioid withdrawal syndrome.Patient also on trazodone, hydroxyzine, gabapentin as needed ordered. Advised quitting opioid use. account financial manager consult. 2. Mild leukocytosis ? WBC count 12.9 on admit. Suspect due to mild stress state versus hemoconcentration. No infectious symptoms noted. No need for antibiotics at this time. 06/24: Leukocytosis resolved. No fever. Blood pressure normal. Does not seem infectious. DVT prophylaxis: Low risk, ambulate CODE STATUS: Full code, verified Expected disposition: Home, 2 to 3 days Does not seem infectious. Charges/Coding Visit Charges Inpatient E&M: 31337 Subs Hosp L2
[2023-06-24 21:38] VITALS: BP 109/60; PULSE 68; RESP 18; TEMP 36.6; O2SAT 99
[2023-06-24] MEDS: traZODone 100 MG Tablet PO (21:42)
[2023-06-25] MEDS: Buprenorphine HCl 2 MG TAB.SUBL SL ×3 (03:50→18:17)
[2023-06-25] MEDS: Gabapentin 300 MG Capsule PO ×2 (03:50→15:29)
[2023-06-25] MEDS: Docusate Sodium 100 MG Capsule PO ×3 (03:50→21:12)
[2023-06-25] MEDS: Methocarbamol 750 MG Tablet PO (03:50)
[2023-06-25 03:51] VITALS: BP 99/58; PULSE 53; RESP 18; TEMP 36.6; O2SAT 99
[2023-06-25 09:50] VITALS: BP 108/78; PULSE 62; RESP 16; TEMP 36.6; O2SAT 99
[2023-06-25] MEDS: hydrOXYzine PAM 25 MG Capsule 50 MG PO ×2 (11:09→21:12)
[2023-06-25] MEDS: cloNIDine HCl 0.1 MG Tablet 0.100000000000000006 MG PO (11:09)
--- NOTE | 2023-06-25 11:33 | PCM.PN.HOSP ---
Reason for Visit Reason for Visit: Diagnoses Opioid abuse, uncomplicated (06/23/23) Objective Data Objective Data Vital Signs: Vital Signs Temp Pulse Resp BP Pulse Ox O2 Del Method 97.9 F 62 16 108/78 99 Room Air 06/25/23 09:50 06/25/23 09:50 06/25/23 09:50 06/25/23 09:50 06/25/23 09:50 06/25/23 09:50 Oxygen Delivery Method Room Air Weight: 150 lb 3.215 oz Body Mass Index (BMI) 26.6 Medical Nutrition Assessment Dietitian: Malnutrition Criteria Met Start: 06/24/23 12:20 Freq: Status: Active Protocol: Document 06/24/23 12:20 AG (Rec: 06/24/23 12:20 [id number]) Nutrition Malnutrition Evidence of Malnutrition Exists Yes Malnutrition (severe): Chronic Evidenced By Suboptimal Energy Intake ( Severe),Weight Loss (Severe) Clinical Problem Chronic Disease or Condition Related Malnutrition Etiology chronic severe malnutrition in context of substance abuse related to inadequate energy intake Signs/Symptoms as evidenced by unintentional 28% wt loss x 5-6 months, estimated PO intake meeting < 75% of estimated energy needs >3 months Status Active Problem Recommendation Dietitian Recommendations/Changes continue regular diet as tolerated, will add 8oz carnation instant breakfast w/ meals d/t signs/symptoms of malnutrition Lab / Micro Data 06/24/23 06:59 06/24/23 06:59 Physical Exam Narrative She complained she had a weird dream, anxiety and restlessness. The patient admitted with opioid use disorder with mild acute opioid withdrawal symptoms. Patient states she snorts heroin, started with Percocet from the friends. Currently she gets heroin from the streets. Physical exam General: Alert, Oriented x3, Cooperative HEENT: Atraumatic, PERRLA, EOMI, Normocephalic Oral: No Gingival or Mucosal Lesions/ Ulcerations Neck: Supple, No JVD, Negative Carotid Bruits Lungs: Air entry diminished in bilateral lung bases. No crepitation/rhonchi Cardiovascular: Regular rate, Regular Rhythm, Normal S1, Normal S2, No murmurs Abdomen: Bowel Sounds Present, Soft, Non Tender, Non-Distended : No renal angle tenderness. No suprapubic tenderness. Extremities: No edema, Capillary Refill Less than 3 Seconds Skin: No rashes, No breakdown Musculoskeletal: No Tenderness to Palpation of Joints or Extremities Neurological: Cranial nerves II-XII grossly intact, DTR 2+/4. No acute focal neurological deficit. Psych/Mental Status: Flat affect, anxiety, restlessness. Denies delusional or suicidal thought. Assessment & Plan Assessment/Plan (1) Opioid abuse: PLAN: Plan Patient is a 37-year-old female who presented to [facility] ED on 06/23/2023 for opiate detoxification. 1. Acute opioid withdrawal syndrome with history of chronic opioid use disorder and dependence: Patient is admitted on MedSur floor. The patient is started on buprenorphine along with other adjunctive medications as needed for medical stabilization as per order set of opioid withdrawal syndrome.Patient also on trazodone, hydroxyzine, gabapentin as needed ordered. Advised quitting opioid use. logistics analytics manager consult. 06/25: Had weird dreams, anxiety but denies visitation. She wants to complete the treatment. 2. Mild leukocytosis ? WBC count 12.9 on admit. Suspect due to mild stress state versus hemoconcentration. No infectious symptoms noted. No need for antibiotics at this time. 06/24: Leukocytosis resolved. No fever. Blood pressure normal. Does not seem infectious. DVT prophylaxis: Low risk, ambulate CODE STATUS: Full code, verified Expected disposition: Home, 2 to 3 days Does not seem infectious. Charges/Coding Visit Charges Inpatient E&M: 70411 Subs Hosp L2
[2023-06-25] MEDS: Acetaminophen 325 MG Tablet 650 MG PO (14:03)
[2023-06-25 15:39] VITALS: BP 100/60; PULSE 54; RESP 16; TEMP 37; O2SAT 100
--- NOTE | 2023-06-25 15:58 | CHAPLAIN ---
Type of Pastoral Visit ___ Initial Visit _x__ Follow-up Visit ___ On-call Visit ___ General Patient Visit ___ Spiritual Assessment ___ Family Conference ___ Bereavement ___ Rapid Response ___ Code Blue ___ Other (describe below) Pastoral Care Referral From _x__ Patient ___ Family ___ Nurse ___ Physician ___ Ob/Gyn ___ Direct Casting Operator ___ Other (describe below) Sacrament/Intervention _x__ Active listening ___ Anointing ___ Restorationist ___ Bereavement ___ Communion _x__ Michelle exploration ___ _x__ Life review _x__ Prayer ___ Reconciliation ___ Sacrament of Sick _x__ Supportive presence ___ Wedding ___ Other (describe below) Pastoral Comments follow up to this patient as she requested; pt reports feeling much better today and has had two showers which were just wonderful ; pt admits that she did not sleep well and is trying to stay awake so she can sleep with a regular schedule tonight; pt asks for something to read and is offered a Bible; pt is glad to receive the Bible for her reading as I've always wanted to read it and remember the stories told by my grandfather ; pt has also been coloring and states that has helped her pass the time calmly;
[2023-06-25 21:10] VITALS: BP 110/64; PULSE 68; RESP 18; TEMP 36.6; O2SAT 100
[2023-06-25] MEDS: traZODone 100 MG Tablet PO (21:12)
[2023-06-26 06:10] VITALS: BP 106/68; PULSE 55; RESP 18; TEMP 36.3; O2SAT 99
[2023-06-26] MEDS: cloNIDine HCl 0.1 MG Tablet 0.100000000000000006 MG PO (06:15)
[2023-06-26] MEDS: Methocarbamol 750 MG Tablet PO (06:15)
[2023-06-26] MEDS: Buprenorphine HCl 2 MG TAB.SUBL SL (06:15)
[2023-06-26] MEDS: hydrOXYzine PAM 25 MG Capsule 50 MG PO (06:15)
--- NOTE | 2023-06-26 07:08 | DCINST_ITS ---
Discharge Instructions Diet Discharge Diet: No restrictions Activity Discharge Activity: Return to Normal Activity Weight Bearing Status: Weight bearing as tolerated Dressing / Incision Call your doctor if you observe: Fever of 101 or Higher, Coldness, Increased Pain, Numbness or Tingling, Change in Color, Inability to urinate, Inability to have a bowel movement, Using more than 1 pad per hour, Shortness of breath, Dizziness, Fainting spells, Swelling in the ankles, Chest pain, Prolonged hiccupping, Increased palpitations (irregular heartbeat) and Calf discomfort Follow Up Care When: IN 2 WEEKS Test Results: Test results from this visit will be discussed in further detail at your follow- up appointment, if applicable. Discharge Plan Admission Admit Date/Time: 06/23/23 16:50 Primary Reason for Your Visit: Acute opioid withdrawal syndrome Attending Provider: Jason Bailey [facility] Consult[facility] Providers: Rafita Montenegro Discharge Orders/Prescriptions Prescriptions: New nicotine 21 mg/24 hr Patch 24 Hour 21 mg transdermal DAILY 28 Days Qty: 28 0RF Referrals / Follow Up: Care Physician,No Primary [Non-Staff] - [facility] [Primary Care Provider] - Disposition Disposition (needs filled in before D/C Order can be placed): Home, Self Care
--- NOTE | 2023-06-26 07:10 | PCM.DC.SUM ---
Providers Date of Admission: 06/23/23 Date of Discharge: 06/26/23 Primary Care Physician: [facility] Reason For Visit: OPIATE DEPENDENCE AND ADDICTION Diagnosis Discharge Diagnosis (1) Opioid abuse: Status: Acute Code(s): F11.10 - Opioid abuse, uncomplicated Plan Patient is a 37-year-old female who presented to [facility] ED on 06/23/2023 for opiate detoxification. 1. Acute opioid withdrawal syndrome with history of chronic opioid use disorder and dependence: Patient is admitted on MedSurg floor. The patient is started on buprenorphine along with other adjunctive medications as needed for medical stabilization as per order set of opioid withdrawal syndrome.Patient also on trazodone, hydroxyzine, gabapentin as needed ordered. Advised quitting opioid use. energy efficient site manager consult. 06/25: Had weird dreams, anxiety but denies visitation. She wants to complete the treatment. 06/26: No acute symptoms of withdrawal. Patient is doing well. Wants to go home. Discharged home and follow-up outpatient opioid rehab center, 180. Prescription given for nicotine patch. 2. Mild leukocytosis ? WBC count 12.9 on admit. Suspect due to mild stress state versus hemoconcentration. No infectious symptoms noted. No need for antibiotics at this time. 06/24: Leukocytosis resolved. No fever. Blood pressure normal. Does not seem infectious. DVT prophylaxis: Low risk, ambulate CODE STATUS: Full code, verified Discharge medication reconciliation done. Discharge follow-up instructions completed. Discharge process discussed with the patient and all questions were answered to patient's satisfaction. Follow with PCP in 1 to 2 weeks Total time spent, exact 35 minutes on discharge meds reconciliation, examination, coordination of care with nurses and ancillary staff, review of imaging and blood test and discussion with the patient on follow-up instructions. Medications at Discharge Home Medications nicotine 21 mg/24 hr daily transdermal patch 21 mg transdermal DAILY 28 days #28 ea 06/26/23 Physical Exam Narrative Patient is doing fine. Patient states she snorts heroin, started with Percocet from the friends. Currently she gets heroin from the streets. Physical exam General: Alert, Oriented x3, Cooperative HEENT: Atraumatic, PERRLA, EOMI, Normocephalic Oral: No Gingival or Mucosal Lesions/ Ulcerations Neck: Supple, No JVD, Negative Carotid Bruits Lungs: Air entry diminished in bilateral lung bases. No crepitation/rhonchi Cardiovascular: Regular rate, Regular Rhythm, Normal S1, Normal S2, No murmurs Abdomen: Bowel Sounds Present, Soft, Non Tender, Non-Distended : No renal angle tenderness. No suprapubic tenderness. Extremities: No edema, Capillary Refill Less than 3 Seconds Skin: No rashes, No breakdown Musculoskeletal: No Tenderness to Palpation of Joints or Extremities. ROM intact and full. Neurological: Cranial nerves II-XII grossly intact, DTR 2+/4. No acute focal neurological deficit. Psych/Mental Status: Flat affect, anxiety, restlessness. Denies delusional or suicidal thought. Medical Records Data Medical Nutrition Assessment Dietitian: Malnutrition Criteria Met Start: 06/24/23 12:20 Freq: Status: Active Protocol: Document 06/24/23 12:20 (Rec: 06/24/23 12:20 [id number]) Nutrition Malnutrition Evidence of Malnutrition Exists Yes Malnutrition (severe): Chronic Evidenced By Suboptimal Energy Intake ( Severe),Weight Loss (Severe) Clinical Problem Chronic Disease or Condition Related Malnutrition Etiology chronic severe malnutrition in context of substance abuse related to inadequate energy intake Signs/Symptoms as evidenced by unintentional 28% wt loss x 5-6 months, estimated PO intake meeting < 75% of estimated energy needs >3 months Status Active Problem Recommendation Dietitian Recommendations/Changes continue regular diet as tolerated, will add 8oz carnation instant breakfast w/ meals d/t signs/symptoms of malnutrition Weight / BMI Weight Weight: 150 lb 3.215 oz Body Mass Index (BMI) 26.6 ABG / Lab / Microbiology Data 06/24/23 06:59 06/24/23 06:59 D/C Instructions Discharge Diet: No restrictions Weight Bearing Status: Weight bearing as tolerated Call your doctor if you observe: Fever of 101 or Higher, Coldness, Increased Pain, Numbness or Tingling, Change in Color, Inability to urinate, Inability to have a bowel movement, Using more than 1 pad per hour, Shortness of breath, Dizziness, Fainting spells, Swelling in the ankles, Chest pain, Prolonged hiccupping, Increased palpitations (irregular heartbeat) and Calf discomfort When: IN 2 WEEKS Meaningful Use Info Meaningful Use Diagnoses (Choose all that apply): None applicable Discharge Plan Admission Admit Date/Time: 06/23/23 16:50 Primary Reason for Your Visit: Acute opioid withdrawal syndrome Attending Provider: Jason Bailey Primary [facility] Providers: Rafita Montenegro Discharge Orders/Prescriptions Prescriptions: New nicotine 21 mg/24 hr Patch 24 Hour 21 mg transdermal DAILY 28 Days Qty: 28 0RF Referrals / Follow Up: Care Physician,No Primary [Non-Staff] - [facility] [Primary Care Provider] - Disposition Disposition (needs filled in before D/C Order can be placed): Home, Self Care Charges/Coding Visit Charges Inpatient E&M: 64170 Disch Hosp >30min
[2023-06-26 08:00] VITALS: BP 103/64; PULSE 66; RESP 14; TEMP 36.6; O2SAT 100
== END 2023-06-26 09:25 | disposition home or self-care (01) | DRG 773 ==
LOC: ED 16:08 → MS3 16:50
PROVIDERS: Physician Assistant; Admitting Provider Hospitalist; Emergency Provider Emergency Medicine; Visit Provider Internal Medicine
DX: F11.23 Opioid dependence with withdrawal (principal); E43 Unspecified severe protein-calorie malnutrition; F17.210 Nicotine dependence, cigarettes, uncomplicated; D72.829 Elevated white blood cell count, unspecified; Z68.26 Body mass index [BMI] 26.0-26.9, adult
CPT/HCPCS: 36415; 80048; 80053; 80307; 80320; 84703; 85025; 85027; 97802; 99284; H0012; G0480